=== PATIENT | female | born 1995 | race Hispanic/Latino ===

== ENCOUNTER → 2016-12-23 | Outpatient (CLI) | payer OTHER | LOC: LAB.O 11:34 | PROVIDERS: ATTEND Obstetrics & Gynecology | DX: O09.31 Supervision of pregnancy with insufficient antenatal care, first trimester (principal); O99.212 Obesity complicating pregnancy, second trimester; Z86.32 Personal history of gestational diabetes; Z3A.15 15 weeks gestation of pregnancy ==

== ENCOUNTER → 2017-01-11 | Outpatient (CLI) | payer OTHER | END | disposition home or self-care (01) | LOC: RAD 13:45 | PROVIDERS: ATTEND Obstetrics & Gynecology | DX: O99.212 Obesity complicating pregnancy, second trimester (principal); E11.9 Type 2 diabetes mellitus without complications; Z3A.18 18 weeks gestation of pregnancy ==

== ENCOUNTER → 2017-05-05 | Outpatient (CLI) | payer OTHER | END | disposition home or self-care (01) | LOC: LAB.O 10:56 | PROVIDERS: ATTEND Obstetrics & Gynecology | DX: O24.410 Gestational diabetes mellitus in pregnancy, diet controlled (principal) ==

== ENCOUNTER → 2018-12-11 | Outpatient (CLI) | payer OTHER | LOC: LAB.O 10:16 | PROVIDERS: ATTEND Nurse Practitioner Family | DX: E11.65 Type 2 diabetes mellitus with hyperglycemia (principal) ==